=== PATIENT | female | born 1950 | race Caucasian/White ===

== ENCOUNTER 2016-09-04 04:34 | Emergency (ER) | payer OTHER ==
[2016-09-04] MEDS ORDERED: LACTATED RINGERS 1,000 ML ONE (05:13)
[2016-09-04] MEDS ORDERED: ONDANSETRON 4 MG/2ML 2 ML VIAL ONE (05:13)
[2016-09-04] MEDS ORDERED: ASPIRIN (ENTERIC COATED) 81 MG TABLET.EC ONE (05:13)
[2016-09-04] MEDS ORDERED: MAALOX/LIDO2%VISC/SIMETHICONE 40 ML BOT ONE (05:36)
[2016-09-04] MEDS ORDERED: ACETAMINOPHEN 325 MG TABLET ONE (05:36)
[2016-09-04 05:38] LABS: ABSOLUTE NEUTROPHIL COUNT 2.6 K/mm3 (1.8-7.7); BASO % 0.7 % (0.2-1.0); HEMATOCRIT 41.8 % (37.0-47.0); HEMOGLOBIN 13.4 gm/l (12.0-16.0); IMM NEUT% 0.4 % (0-1); LYMPH # 2.4 (1.0-4.8); LYMPH % 42.6 % (15-45); MEAN CELL VOLUME 94.8 fl (81.0-99.0); MEAN CORPUSCULAR HEMOGLOBIN 30.4 pg (27.0-31.0); MEAN CORPUSCULAR HGB CONC 32.1 g/dl (33.0-37.0); MEAN PLATELET VOLUME 11.8 fl (7.4-10.4); MONO # 0.5 (0.0-0.8); MONO % 9.7 % (4-12); NEUT % 46.6 % (43-75); PLATELET COUNT 191 K/mm3 (130-400); RED CELL DISTRIBUTION WIDTH 13.2 % (11.5-14.5)
[2016-09-04 05:42] LABS: ALB/GLOB RATIO 1.2 (>1.0); ALBUMIN 3.9 gm/dL (3.5-5.7); CALCIUM 9.9 mg/dL (8.6-10.3); MAGNESIUM 1.8 mg/dL (1.9-2.7)
[2016-09-04] MEDS ORDERED: SUCRALFATE 1 G/10 ML DOSE ONE (07:08)
[2016-09-04] MEDS ORDERED: FAMOTIDINE 20 MG TABLET ONE (07:08)
--- NOTE | 2016-09-04 08:15 | RAD ---
CHEST 2 VIEWS HISTORY: Chest and epigastric pain x4 days. Frontal and lateral chest radiographs dated 09/04/2016. COMPARISON: 08/20/2015. FINDINGS: LUNG VOLUMES: Mild hyperinflation. FOCAL AIRSPACE OPACITY: No gross airspace consolidation. BRONCHOVASCULAR MARKINGS: Coarsened with peribronchial cuffing. PLEURAL EFFUSION: None. CARDIOMEDIASTINAL SILHOUETTE: Nonenlarged. PNEUMOTHORAX: None identified. Minor apical fibrotic change. OSSEOUS STRUCTURES: No grossly destructive lesions. UPPER ABDOMEN: Status post cholecystectomy. IMPRESSION: No gross airspace consolidation. Coarsened bronchovascular markings, which can be seen in the setting of bronchitis, atypical/viral infection, or central airways disease. Mild hyperinflation suggests obstructive pulmonary disease.
--- NOTE | 2016-09-04 08:27 | CT ---
CT ABDOMEN AND PELVIS WITHOUT CONTRAST HISTORY: Epigastric pain x4 days. TECHNIQUE: No intravenous contrast administered; contiguous axial images were acquired from the lung bases to the ischial tuberosities. Oral contrast was not administered. COMPARISON:None. FINDINGS: LUNG BASES: Minor bronchial wall thickening is noted. No airspace abnormality or pleural effusion. LIVER: No focal mass effect. SPLEEN: No focal mass effect. STOMACH: Small hiatal hernia. PANCREAS: No mass effect or inflammatory change. ADRENAL GLANDS: No mass effect. KIDNEYS: Nonobstructive right renal calculus, 2 mm in size. GALLBLADDER: Surgically absent. BOWEL: Moderate fecal loading. Limited assessment of the distal colon due to decompression. No abnormal small bowel dilatation. APPENDIX: Not seen. PELVIC ORGANS: Status post hysterectomy, no adnexal mass effect. FREE FLUID: No gross free fluid identified. INGUINAL REGIONS: Small fatty left inguinal hernia. ABDOMINOPELVIC LYMPH NODES: No abnormally enlarged lymph nodes identified. ABDOMINAL AORTA: Minor atherosclerotic calcifications without aneurysmal dilatation. 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 IMPRESSION: 1. Noninflammatory, nonobstructive appearance of bowel. 2. Small hiatal hernia is present; this can predispose to gastroesophageal reflux. 3. Minor bronchial wall thickening, correlate for bronchitis. 4. Status post cholecystectomy and hysterectomy. 5. Small fatty left inguinal hernia. 6. Nonobstructive 2 mm right renal calculus. 7. Moderate spinal canal stenosis at the L4-5 level. Preliminary report relayed to the Emergency Medicine medical service by Dr. Queen on 09/04/2016 at 0650 hours.
[2016-09-04] MEDS ORDERED: PROCHLORPERAZINE 5 MG/ML 2 ML VIAL ONE (09:32)
== END 2016-09-04 10:43 | disposition home or self-care (01) ==
LOC: ED 04:34
DX: R07.9 Chest pain, unspecified (principal); R10.13 Epigastric pain; R19.7 Diarrhea, unspecified; J45.909 Unspecified asthma, uncomplicated; Z87.891 Personal history of nicotine dependence
CPT/HCPCS: 83605; 83690; 85025; 80053; 83735; 84484 ×2; 71020; 74176; 87804; 96375; 99284 ×2; 96374; 96361 ×2; 93005 ×2; A9270 ×5; J0780; J2405; J7120